=== PATIENT | female | born 1945 | race Caucasian/White ===

== ENCOUNTER 2019-02-15 11:55 | Day surgery (SDC) | payer MEDICARE ==
[2019-02-15] MEDS ORDERED: LIDOCAINE 2% MDV (20MG/ML) 20ML VIAL IV ONE (11:56)
[2019-02-15] MEDS ORDERED: PROPOFOL 10 MG/ML VIAL IV ONE (11:56)
--- NOTE | 2019-02-16 09:30 | Operative Note ---
OPERATION: 1. ESOPHAGOGASTRODUODENOSCOPY with biopsy. 2. COLONOSCOPY. PREOPERATIVE DIAGNOSES: 1. GERD. 2. Personal history of colon polyps. POSTOPERATIVE DIAGNOSES: 1. Small hiatal hernia. 2. Irregular Z line. 3. GE junction erosions. 4. Normal colonoscopy. PROCEDURE: After informed consent was obtained from the patient, she was placed in the left lateral decubitus position in the endoscopy suite, sedated and monitored by the department of anesthesia. A well-lubricated [id number] gastroscope was placed in the posterior oropharynx under direct visualization and passed to the proximal esophagus. The endoscope was advanced through the proximal, mid, and distal esophagus. The GE junction was irregular with several small erosions and a small hiatal hernia. The gastric body, antrum, pylorus, duodenal bulb and sweep were unremarkable. J-turn views of the proximal stomach revealed a small hiatal hernia. The endoscope was then straightened. GE junction biopsies were obtained. The endoscope removed from the patient with no new findings noted. Digital rectal exam was performed which was unremarkable. A well-lubricated [id number] colonoscope was inserted into the rectum and advanced to the cecum. Preparation quality was good. The cecum, cecal bulb, ileocecal valve, ascending colon, transverse colon, descending colon, sigmoid colon, and rectum were free of inflammatory changes, mass lesions, or polyps. Forward and J-turn views of the rectum and anorectum were unrevealing. The endoscope was straightened, the rectal ampulla deflated, and the endoscope was removed. RECOMMENDATIONS: I would suggest the patient undergo repeat colonoscopy in 5 years. She should continue her current medical program related to her reflux. As always, thank you for allowing me to participate in the healthcare of your patients. XANDER
== END 2019-02-15 13:25 | disposition home or self-care (01) ==
LOC: HOP 11:55
PROVIDERS: ATTEND Internal Medicine Gastroenterology
DX: Z12.11 Encounter for screening for malignant neoplasm of colon (principal); Z86.010 Personal history of colon polyps; K21.9 Gastro-esophageal reflux disease without esophagitis; K44.9 Diaphragmatic hernia without obstruction or gangrene; K31.89 Other diseases of stomach and duodenum; K20.9 Esophagitis, unspecified; I10 Essential (primary) hypertension
CPT/HCPCS: 43239; 00813; G0105